=== PATIENT | male | born 1950 | race Caucasian/White ===

== ENCOUNTER 2018-07-12 13:30 | Emergency (ER) | payer MEDICARE, OTHER ==
[~2018-07-12] VITALS: Ht 177.8 cm; Wt 110.2 kg
[~2018-07-12 13:30] MED LIST: ASPIRIN LOW DOS81 MG PO; CLARITIN10 MG PO; DICYCLOMINE HCL20 MG PO; FLOMAX0.4 MG PO; GARLIC1 EAC1 PO; REPATHA SQ; WELCHOL625 MG PO; Z MIRAPEX PO; Z.0.ALTACE10 M1 PO; Z.0.CRESTOR10 MG PO; Z.0.MULTIVITAMINS1 E; Z.0.TOPROL XL25 MG PO; Z.0.ZOLOFT50 MG PO; Z.6.FISH OIL 1,0001 PO; ZETIA10 MG PO; ZOFRAN ODT4 MG PO; ZOLOFT100 MG PO; [UNRECOGNIZED DRUG - OTHER]
--- OUTSIDE RECORDS SUMMARY | 2018-07-12 13:35 | XMS REPORT | Continuity of Care Document ---
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 [facility] STIFFNESS OF RIGHT HAND, NOT ELSEWHERE C Active [facility] STIFFNESS OF LEFT HAND, NOT ELSEWHERE CL Active [facility] Medications Medication Details Route Status Patient Instructions Ordering Provider Order Date Source Allergies, Adverse Reactions, Alerts Substance Category Reaction Severity Reaction type Status Date Reported Comments Source Immunizations Immunization Date Given Site Status Last Updated Comments Source Results Order Name Results Value Reference Range Date Interpretation Comments Source Vital Signs Vital Sign Value Date Comments Source Encounters Location Location Details Encounter Type Encounter Number Reason For Visit Attending Provider ADM Date DC Date Status Source [facility] [id number] Leeann Noland 02/16/2015 03/18/2015 [facility] [id number] Leeann Noland 03/26/2017 04/25/2017 [facility] [id number] Leeann Noland 01/14/2018 02/13/2018 [facility] Procedures Procedure Code Date Perfomer Comments Source
--- OUTSIDE RECORDS SUMMARY | 2018-07-12 13:35 | XMS REPORT | Summary of Care ---
Author Author [facility] Address Unknown Phone Unavailable Encounter [facility] Bernicentr_susanne([facility]) [id number] Date(s): 02/16/15 - 03/17/15 [facility] Discharge Disposition: Home Attending Physician: Leeann Noland MD Vital Signs No data available for this section Problem List No data available for this section Allergies, Adverse Reactions, Alerts No data available for this section Medications No data available for this section Results No data available for this section Immunizations No data available for this section Procedures No data available for this section Social History No data available for this section Assessment and Plan No data available for this section
--- OUTSIDE RECORDS SUMMARY | 2018-07-12 13:35 | XMS REPORT | Summary of Care ---
Author Author [facility] Address Unknown Phone Unavailable Encounter [facility] Encntr[facility]susanne([facility]) [id number] Date(s): 03/26/17 - 04/24/17 [facility] Discharge Disposition: Home or Self Care Attending Physician: Leeann Noland MD Vital Signs [...]
--- OUTSIDE RECORDS SUMMARY | 2018-07-12 13:35 | XMS REPORT | Summary of Care ---
Author Author [facility] Address Unknown Phone Unavailable Encounter Bernicentr_susanne([facility]) [id number] Date(s): 01/14/18 - 02/12/18 [facility] Discharge Disposition: Home or Self Care Attending [...]
[2018-07-12] MEDS ORDERED: SODIUM CHLORIDE 0.9% 1000ML 1,000 ML IV SCH (14:00)
== END 2018-07-12 14:51 | disposition home or self-care (01) ==
LOC: FSED 13:30
DX: R10.9 Unspecified abdominal pain (principal); R19.7 Diarrhea, unspecified; K52.9 Noninfective gastroenteritis and colitis, unspecified; I10 Essential (primary) hypertension
CPT/HCPCS: 80048; 81003; 99284

== ENCOUNTER → 2019-02-13 | Outpatient (CLI) | payer MEDICARE ==
[~2019-02-13] MED LIST changes: +D-RIBOSE PO; +FINASTERIDE5 MG PEG
--- NOTE | 2019-02-13 10:58 | Diagnostic Imaging Report ---
Exam: Abdominal film Clinical History: Renal stone Comparison: None. DISCUSSION: 7 mm oblong calculus projects over the lower pole of the left renal shadow. No additional calcifications project over the renal shadows or expected ureteral courses. Multiple pelvic phleboliths. Bowel gas pattern is nonobstructive. Regional skeletal structures are intact. Age-indeterminate suspected anterior compression deformity of L1. Right upper quadrant surgical clips likely reflect cholecystectomy. IMPRESSION: 7 mm left renal calculus. Signed by: Dr. Gregor Sanchez M.D. on 02/13/2019 10:55 AM
== END ==
LOC: RAD 10:24
PROVIDERS: ATTEND Urology
DX: N20.1 Calculus of ureter (principal)
CPT/HCPCS: 74018

== ENCOUNTER → 2019-02-27 | Day surgery (SDC) | payer MEDICARE ==
[2019-02-25 15:17] LABS: BASOPHILS # (AUTO) 0.1 (0.0-0.1); BASOPHILS % 0.7 % (0.0-1.0); EOSINOPHILS # (AUTO) 0.2 (0.0-0.4); EOSINOPHILS % 2.2 % (0.0-6.0); HEMOGLOBIN 13.9 g/dL (14.0-18.0); LYMPHOCYTES # (AUTO) 1.7 (1.0-3.2); LYMPHOCYTES % 23.7 % (18.0-39.1); MEAN CORPUSCULAR HEMOGLOBIN 29.9 pg (28-32); MEAN CORPUSCULAR HGB CONC 33.9 g/dL (31-35); MEAN CORPUSCULAR VOLUME 88.2 fL (81-99); MONOCYTES # (AUTO) 0.6 (0.2-0.8); MONOCYTES % 8.6 % (4.4-11.3); NEUTROPHILS # (AUTO) 4.6 (2.1-6.9); NEUTROPHILS % 64.7 % (38.7-80.0); PLATELET COUNT 207 x10e3/uL (140-360); RED BLOOD COUNT 4.65 x10e6/uL (4.3-5.7); RED CELL DISTRIBUTION WIDTH 13.5 % (11.7-14.4)
--- NOTE | 2019-02-25 16:38 | Diagnostic Imaging Report ---
EXAMINATION: CHEST 2 VIEWS INDICATION: Preoperative COMPARISON: Multiple prior chest radiographs, most recently of 01/25/2016 FINDINGS: TUBES and LINES: Median sternotomy wires in unchanged position. LUNGS: The lungs are moderately inflated. There are patchy and reticular opacities at the left lower lung zone silhouetting the left heart border. This appearance is unchanged dating back to 12/03/2008 and likely represents a combination of scarring and atelectasis. No focal consolidation or pulmonary edema in the right lung. A 11 mm right upper lung zone nodular opacity appears unchanged dating back to at least 01/25/2016 and likely represents a benign granuloma. PLEURA: No pleural effusion or pneumothorax. HEART AND MEDIASTINUM: The cardiomediastinal silhouette is unchanged in size and contour. BONES AND SOFT TISSUES: No acute fracture or dislocation. UPPER ABDOMEN: No free air under the diaphragm. IMPRESSION: No focal pneumonia or pulmonary edema. Patchy and reticular opacities at the left lower lung zone appear unchanged dating back to 2008 and likely represent a combination of scarring and atelectasis. Signed by: Yanely Call MD on 02/25/2019 4:35 PM
[~2019-02-27] MED LIST changes: +CEFTRIAXONE SOD 1 GM/NS 50 ML 50 ML IV ONE; +DEXAMETHASONE SOD PHOS INJ 4 MG/ML VIAL ONE; +EPHEDRINE SULFATE INJ 50 MG/10 ML SYR ONE; +LIDOCAINE HCL 2% LOCAL INJ 5 ML SDV VIAL INJ ONE; +ONDANSETRON HCL INJ 2MG/ML 2ML 2 MG/ML VIAL ONE; +PROPOFOL IV EMULSION 10 MG/ML 20 ML VIAL ONE; +SEVOFLURANE INHAL SOLN 250 ML PEN BTL ONE; +SODIUM CHLORIDE 0.9% 500ML 0 ML ONE
--- OUTSIDE RECORDS SUMMARY | 2019-02-27 05:33 | XMS REPORT | Continuity of Care Document ---
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 [facility] [place] STIFFNESS OF RIGHT HAND, NOT ELSEWHERE C Active [facility] [place] STIFFNESS OF LEFT HAND, NOT ELSEWHERE CL Active [facility] [place] Medications No Data Provided for This Section Allergies, Adverse Reactions, Alerts No Known Medication Allergies Immunizations No Data Provided for This Section Results No Data Provided for This Section Pathology Reports No Data Provided for This Section Diagnostic Reports No Data Provided for This Section Consultation Notes No Data Provided for This Section Discharge Summaries No Data Provided for This Section History and Physicals No Data Provided for This Section Vital Signs No Data Provided for This Section Encounters Location Location Details Encounter Type Encounter Number Reason For Visit Attending Provider ADM Date DC Date Status Source [facility] [id number] Leeann Noland 02/16/2015 03/18/2015 [facility] [place] [facility] [id number] Leeann Noland 03/26/2017 04/25/2017 [facility] [place] [facility] [id number] Leeann Noland 01/14/2018 02/13/2018 [facility] [place] [facility] [id number] Leeann Noland 02/20/2018 03/22/2018 [facility] [place] Procedures No Data Provided for This Section Assessment and Plan No Data Provided for This Section Plan of Care No Data Provided for This Section Social History Social History Date Source No data available for this section 03/22/2018 [facility] Family History No Data Provided for This Section Advance Directives No Data Provided for This Section Functional Status No Data Provided for This Section
--- OUTSIDE RECORDS SUMMARY | 2019-02-27 05:33 | XMS REPORT ---
[facility] Address Unknown Phone Unavailable Care Team Providers Care Clinical Nursing Instructor Name Role Phone TOVA PATTON Unavailable Unavailable Problems This patient has no known problems. Allergies, Adverse Reactions, Alerts This patient has no known allergies or adverse reactions. Medications This patient has no known medications. Results Test Description Test Time Test Comments Text Results Atomic Results Result Comments CHEST 2 VIEWS 2019-02-25 16:30:00 [place] [address] Patient Name: KASH CANNON MR #: [id number] : 1950 Age/Sex: 68/M Req #: [id number] Adm Physician: Ordered by: TOVA PATTON MD Report #: [id number] Location: OR Room/Bed: Procedure: [id number] DX/CHEST 2 VIEWS Exam Date: 02/25/19 Exam Time: 1533 REPORT STATUS: Signed EXAMINATION: CHEST 2 VIEWS INDICATION: Preoperative COMPARISON: Multiple prior chest radiographs, most recently of 01/25/2016 FINDINGS: TUBES and LINES: Median sternotomy wires in unchanged position. LUNGS: The lungs are moderately inflated. There are patchy and reticular opacities at the left lower lung zone silhouetting the left heart border. This appearance is unchanged dating back to 12/03/2008 and likely represents a co mbination of scarring and atelectasis. No focal consolidation or pulmonary edema in the right lung. A 11 mm right upper lung zone nodular opacity appears unchanged dating back to at least 01/25/2016 and likely represents a benign granuloma. PLEURA: No pleural effusion or pneumothorax. HEART AND MEDIASTINUM: The cardiomediastinal silhouette is unchanged in size and contour. BONES AND SOFT TISSUES: No acute fracture or dislocation. UPPER ABDOMEN: No free air under the diaphragm. IMPRESSION: No focal pneumonia or pulmonary edema. Patchy and reticular opacities at the left lower lung zone appear unchanged dating back to 2008 and likely represent a combination of scarring and atelectasis. Signed by: Jose Martin Keller MD on 02/25/2019 4:35 PM Dictated By: JOSE MARTIN KELLER MD 34 Transcribed By: MATTHEW on 02/25/191634 COPY TO: TOVA PATTON MD ABDOMEN-1VIEW (KUB) 2019-02-13 10:53:00 [place] [address] Patient Name: KASH CANNON MR #: [id number] : 1950 Age/Sex: 68/M Req #: [id number] Adm Physician: Ordered by: TOVA PATTON MD Report #: [id number] Location: [facility] Room/Bed: Procedure: [id number] DX/ABDOMEN-1VIEW (KUB) Exam Date: 02/13/19 Exam Time: 1042 REPORT STATUS: Signed Exam: Abdominal film Clinical History: Renal stone Comparison: None. DISCUSSION: 7 mm oblong calculus projects over the lower pole of the left renal shadow. No additional calcifications project over the renal shadows or expected ureteral courses. Multiple pelvic phleboliths. Bowel gas pattern is nonobstructive. Regional skeletal structures are intact. Age-indeterminate suspected anterior compression deformity of L1. Right upper quadrant surgical clips likely reflect cholecystectomy. IMPRESSION: 7 mm left renal calculus. Signed by: Dr. Hawk Connor M.D. on 02/13/2019 10:55 AM Dictated By: HAWK CONNOR MD 1056 Transcribed By: MATTHEW on 02/13/19 1051 COPY TO: TOVA PATTON MD
--- OUTSIDE RECORDS SUMMARY | 2019-02-27 05:33 | XMS REPORT | Summary of Care ---
Author Author [facility] Address Unknown Phone Unavailable Encounter HQ Encntr_alias(FIN) [id number] Date(s): 02/20/18 - 03/21/18 [facility] Encounter Diagnosis Palmar fascial fibromatosis [Dupuytren] (Final) - 03/27/18 Stiffness of left hand, not elsewhere classified (Final) - Discharge Disposition: Home or Self Care Attending [...]
[2019-02-27 08:45] VITALS: BP 114/76
--- NOTE | 2019-02-27 10:57 | Operative Report ---
DATE OF PROCEDURE: 02/27/2019 SURGEON: Amauri Covarrubias MD PREOPERATIVE DIAGNOSIS: Left kidney stone. POSTOPERATIVE DIAGNOSIS: Left kidney stone. PROCEDURES: 1. Staged shock wave lithotripsy, left side. 2. Supervision of fluoroscopy. ANESTHESIA: General. ESTIMATED BLOOD LOSS: Minimal. COMPLICATIONS: None. INDICATIONS: Mr. Dominguez is a pleasant 68-year-old, chronic stone former, now presenting with an intermittently symptomatic left-sided kidney stone, 7 mm x 7 mm. He and I had a long discussion of alternatives, risks, and benefits of including nothing, shock wave lithotripsy, ureteroscopy, percutaneous surgery or open surgery. He voiced understanding of the options, alternatives, risks, and benefits and elected to proceed. PROCEDURE IN DETAIL: After informed consent was obtained, the patient was taken to the operative suite, placed supine on the operating table, underwent general anesthesia by the Anesthesia service. Stone was localized in the X, Y and Z planes under fluoroscopy and lithotripsy was begun causing immediate PVCs. At this time, the patient required gating. A total 3000 shocks on maximum power setting of 6 were delivered to the stone. The patient tolerated the procedure well and was transported to the recovery room in excellent condition. Supervision of fluoroscopy: I was present for the entire procedure and supervised fluoroscopy, there was no radiologist present. Amauri Covarrubias MD ES/MODL /[id number] cc: Niranjan Chand DO
== END | disposition home or self-care (01) ==
LOC: OR 05:00
PROVIDERS: ATTEND Urology
DX: N20.0 Calculus of kidney (principal); N13.39 Other hydronephrosis; N40.1 Benign prostatic hyperplasia with lower urinary tract symptoms; R39.14 Feeling of incomplete bladder emptying; R35.1 Nocturia; N39.0 Urinary tract infection, site not specified; N20.1 Calculus of ureter; N52.9 Male erectile dysfunction, unspecified; T19.1XXA Foreign body in bladder, initial encounter; I25.2 Old myocardial infarction; I25.810 Atherosclerosis of coronary artery bypass graft(s) without angina pectoris; G47.33 Obstructive sleep apnea (adult) (pediatric); I10 Essential (primary) hypertension; I44.0 Atrioventricular block, first degree; X58.XXXA Exposure to other specified factors, initial encounter; Z88.0 Allergy status to penicillin; Z01.810 Encounter for preprocedural cardiovascular examination; Z01.812 Encounter for preprocedural laboratory examination; Z01.818 Encounter for other preprocedural examination; Z79.82 Long term (current) use of aspirin; Z95.1 Presence of aortocoronary bypass graft
CPT/HCPCS: 36415; 50590; 71046; 85025; 93005; J0696; J1100; J2001; J2405; J2704; J7040

== ENCOUNTER → 2019-05-06 | Outpatient (CLI) | payer MEDICARE ==
[~2019-05-06] MED LIST changes: -CEFTRIAXONE SOD 1 GM/NS 50 ML 50 ML IV ONE; -DEXAMETHASONE SOD PHOS INJ 4 MG/ML VIAL ONE; -EPHEDRINE SULFATE INJ 50 MG/10 ML SYR ONE; -LIDOCAINE HCL 2% LOCAL INJ 5 ML SDV VIAL INJ ONE; -ONDANSETRON HCL INJ 2MG/ML 2ML 2 MG/ML VIAL ONE; -PROPOFOL IV EMULSION 10 MG/ML 20 ML VIAL ONE; -SEVOFLURANE INHAL SOLN 250 ML PEN BTL ONE; -SODIUM CHLORIDE 0.9% 500ML 0 ML ONE
--- NOTE | 2019-05-06 15:11 | Diagnostic Imaging Report ---
EXAM: ABDOMEN-1VIEW (KUB) DATE: 05/06/2019 1:46 PM INDICATION: Calculus of kidney COMPARISON: 02/13/2019 FINDINGS: Multiple subcentimeter calcifications identified projecting over the left renal shadow suggestive of small stones. Stable appearing phleboliths noted within the pelvis. Cholecystectomy clips noted within the right upper quadrant. Bowel gas pattern is nonobstructive. No intraperitoneal free air is appreciated. No acute osseous abnormality identified. IMPRESSION: Subcentimeter stones identified projecting over the left kidney. Signed by: Dr. Kaz Naranjo MD on 05/06/2019 3:07 PM
== END ==
LOC: RAD 13:40
PROVIDERS: ATTEND Urology
DX: N20.0 Calculus of kidney (principal)
CPT/HCPCS: 74018

== ENCOUNTER 2020-10-03 10:14 | Emergency (ER) | payer MEDICARE ==
[~2020-10-03] VITALS: Ht 177.8 cm; Wt 110.7 kg
[2020-10-03] MEDS ORDERED: KETOROLAC TROMETHAMINE 60 MG/2 ML VIAL IM ONE (10:45)
[2020-10-03] MEDS ORDERED: KETOROLAC TROMETHAMINE 60 MG/2 ML VIAL ONE (10:51)
[2020-10-03] MEDS ORDERED: PREDNISONE20 MG PO (11:28)
[2020-10-03] MEDS ORDERED: PREDNISONE 20 MG TAB PO ONE (11:30)
[2020-10-03] MEDS ORDERED: PREDNISONE 20 MG TAB ONE (11:32)
== END 2020-10-03 11:40 | disposition home or self-care (01) ==
LOC: FSED 10:40
DX: M25.571 Pain in right ankle and joints of right foot (principal); I10 Essential (primary) hypertension; E78.5 Hyperlipidemia, unspecified; I25.10 Atherosclerotic heart disease of native coronary artery without angina pectoris; G47.30 Sleep apnea, unspecified; I25.2 Old myocardial infarction; Z95.1 Presence of aortocoronary bypass graft; Z87.442 Personal history of urinary calculi
CPT/HCPCS: 73610; 96372; 99283; J1885; J7512

== ENCOUNTER 2023-01-15 13:45 | Emergency (ER) | payer MEDICARE ==
[~2023-01-15] VITALS: Ht 177.8 cm; Wt 110.7 kg
[~2023-01-15 13:45] MED LIST changes: +PREDNISONE20 MG PO
[2023-01-15] MEDS ORDERED: SODIUM CHLORIDE FLUSH 10 ML SYR IV PRN (14:15)
[2023-01-15 14:35] LABS: BASOPHILS % 0.3 % (0.0-1.0); EOSINOPHILS # (AUTO) 0.1 (0.0-0.4); EOSINOPHILS % 0.5 % (0.0-6.0); HEMATOCRIT 44.1 % (38.2-49.6); HEMOGLOBIN 14.8 g/dL (14.0-18.0); LYMPHOCYTES % 7.8 % (18.0-39.1); MEAN CORPUSCULAR HEMOGLOBIN 30.2 pg (28-32); MEAN CORPUSCULAR HGB CONC 33.6 g/dL (31-35); MONOCYTES # (AUTO) 0.9 (0.2-0.8); MONOCYTES % 6.9 % (4.4-11.3); NEUTROPHILS # (AUTO) 10.7 (2.1-6.9); PLATELET COUNT 222 x10e3/uL (140-360); RED CELL DISTRIBUTION WIDTH 13.4 % (11.7-14.4)
[2023-01-15 14:50] LABS: ALBUMIN 4.2 g/dL (3.5-5.0); ALBUMIN/GLOBULIN RATIO 1.1 (0.8-2.0); ANION GAP 14.1 mmol/L (8-16); CALCIUM 10.1 mg/dL (8.4-10.2); CREATININE, SERUM 0.87 mg/dL (0.72-1.25); POTASSIUM 4.1 mmol/L (3.5-5.1)
[2023-01-15 17:43] VITALS: O2SAT 98
== END 2023-01-15 17:45 | disposition home or self-care (01) ==
LOC: ER 14:03
DX: R50.9 Fever, unspecified (principal); R07.9 Chest pain, unspecified; I10 Essential (primary) hypertension; E78.5 Hyperlipidemia, unspecified; I25.10 Atherosclerotic heart disease of native coronary artery without angina pectoris; G47.30 Sleep apnea, unspecified; F32.A Depression, unspecified; I25.2 Old myocardial infarction; Z95.1 Presence of aortocoronary bypass graft; Z87.442 Personal history of urinary calculi
CPT/HCPCS: 36415; 71045; 80053; 83880; 84484; 85025; 93005; 94760; 99284